=== PATIENT | female | born 2000 | race Caucasian/White ===

== ENCOUNTER 2025-09-02 16:51 | Emergency (ER) | payer OTHER ==
[2025-09-02] MEDS ORDERED: SODIUM CHLORIDE 0.9% 1,000 ML IV ONE (17:10)
[2025-09-02] MEDS ORDERED: Ondansetron Hydrochloride 4 MG/2 ML VIAL IV ONE (17:10)
[2025-09-02 17:22] LABS: BILIRUBIN Negative (Negative); BLOOD 2+ (Negative); CLARITY Turbid (Clear); COLOR Yellow (Yellow); KETONE 3+ (Negative); LEUKO ESTERASE Trace (Negative); NITRITE Negative (Negative); PH 8.0 (4.5-8.0); SPECIFIC GRAVITY 1.020 (1.001-1.030); UROBILINOGEN 1.0 E.U./dl (0.0-1.0)
[2025-09-02 17:48] LABS: BUN 14 mg/dl (9-23); SGPT/ALT 8 U/L (5-49)
[2025-09-02 17:59] LABS: BASO # 0.0 10*3/uL (0.0-0.1); BASO % 0.2 % (0.0-1.0); EOS # 0.0 10*3/uL (0.0-0.4); EOS % 0.0 % (1.0-4.0); MEAN CELL VOLUME 90.4 fl (81.0-99.0); MEAN CORPUSCULAR HGB 30.7 pg (27.0-31.0); MEAN PLATELET VOLUME 9.4 fl (9.6-12.3); MONO # 0.2 10*3/uL (0.1-1.0); MONO % 1.7 % (3.0-9.0); NEUT # 10.7 10*3/uL (2.3-7.9); NEUT % 89.0 % (47.0-73.0); NUCLEATED RED BLOOD CELL 0.0 % (0.0-0.0); NUCLEATED RED BLOOD CELL 0.0 10*3/uL (0.0-0.0); PLATELET COUNT AUTOMATED 301 10*3/uL (130-400); RED CELL DISTRI WIDTH 12.1 % (0-14.5)
[2025-09-02 18:09] LABS: BACTERIA 3+; MUCOUS 2+
[2025-09-02] MEDS ORDERED: MACROBID100 M1 PO (20:01)
[2025-09-02] MEDS ORDERED: Ondansetron4 MG PO (20:01)
[2025-09-02] MEDS ORDERED: Nitrofurantoin Monohydrate/N 100 MG CAP PO ONE (20:05)
[2025-09-02] MEDS ORDERED: Promethazine Hydrochloride 25 MG/ML VIAL IV ONE (20:25)
== END 2025-09-02 21:11 | disposition home or self-care (01) ==
LOC: ED 16:51
PROVIDERS: Nurse Practitioner Family
DX: K52.9 Noninfective gastroenteritis and colitis, unspecified (principal); N30.01 Acute cystitis with hematuria; R10.31 Right lower quadrant pain